=== PATIENT | female | born 1980 | race Caucasian/White ===

== ENCOUNTER 2016-12-07 10:42 | Emergency (ER) | payer OTHER ==
[~2016-12-07] VITALS: Ht 162.6 cm; Wt 100.0 kg
[~2016-12-07 10:42] MED LIST: AMO500 PO; HYDR-3498 PO; IBUP-1542 PO; IBUP800T25 PO; IRON18TA PO; NITR-58 PO; OMEP20CA9 PO; PREN1TAB49 PO; TRAM50TA2 PO
[2016-12-07 10:46] VITALS: Ht 162.6 cm; Wt 100.0 kg
[2016-12-07] MEDS ORDERED: PEN500 PO (12:05)
[2016-12-07] MEDS ORDERED: HYDR-906 PO (12:05)
--- NOTE | 2016-12-07 13:28 | ERD ---
ER Documentation Chief Complaint Date/Time DATE: 12/07/16 TIME: 13:23 Chief Complaint has broken tooth, has pain HPI 36-year-old female patient with a past medical history of chronic toothache presents to the ED complaining of right maxillary second tooth pain that has been going on for the past year. Reports that she followed up with her dentist and is trying to see a oral maxillary surgeon because her tooth is crooked and needs a specialist to perform the procedure. Reports that she tried going to her dentist however they told her to come here to the ED. Reports that this is the same pain. States that taking Rochester helps with her pain. Denies any fever , chills, dysphagia, odynophagia, weakness, nausea, vomiting. ROS All systems reviewed and are negative except as per history of present illness. Medications Home Meds Active Scripts Hydrocodone/Acetaminophen (Rochester 5-325 Tablet) 1 Each Tablet, 1 TAB PO Q6H Y for PAIN, #7 TAB Prov:RADHA PRIDE PA-C 12/07/16 Penicillin V Potassium* (Penicillin V K*) 500 Mg Tab, 500 MG PO QID for 7 Days, TAB Prov:RADHA PRIDE PA-C 12/07/16 Amoxicillin* (Amoxicillin*) 500 Mg Cap, 500 MG PO TID for 7 Days, CAP Prov:RADHA PRIDE PA-C 02/21/16 Tramadol HCl (Tramadol HCl) 50 Mg Tablet, 50 MG PO Q4 Y for PAIN, #30 TAB Prov:RADHA PRIDE PA-C 02/21/16 Nitrofurantoin Monohyd Macrocr (Macrobid) 100 Mg Capsr, 100 MG PO BID for 7 Days , CAP Prov:MERT MORENO 02/10/16 Hydrocodone Bit-Acetaminophen* (Rochester*) 5-325 Mg Tab, 1 TAB PO Q6 Y for PAIN, # 20 TAB Prov:MERT MORENO 02/10/16 Ibuprofen* (Motrin*) 600 Mg Tab, 600 MG PO Q6, #30 TAB Prov:MERT MORENO 10/11/15 Hydrocodone Bit-Acetaminophen* (Rochester*) 5-325 Mg Tab, 1 TAB PO Q6 Y for PAIN, # 10 TAB Prov:MERT MORENO 10/11/15 Nitrofurantoin Monohyd Macrocr* (Macrobid*) 100 Mg Capsr, 100 MG PO BID for 7 Days, CAP Prov:MERT MORENO Hugo 10/11/15 Hydrocodone Bit-Acetaminophen* (Rochester*) 5-325 Mg Tab, 1 TAB PO Q6 Y for PAIN, # 20 TAB Prov:BELLE WETZELYesi [employer] 09/07/15 Ibuprofen* (Motrin*) 800 Mg Tab, 800 MG PO Q6, #30 TAB Prov:BELLE WETZEL Silva [employer] 08/26/15 Hydrocodone Bit-Acetaminophen* (Rochester*) 5-325 Mg Tab, 1 TAB PO Q6 Y for PAIN, # 20 TAB Prov:BELLE WETZELYesi [employer] 08/26/15 Reported Medications Omeprazole* (Prilosec*) 20 Mg Capsule.dr, 20 MG PO DAILY 08/12/11 Iron (Iron) 18 Mg Tablet, 18 MG PO 08/12/11 Vits W-Ca,Fe,Fa(<1MG) () 1 Tab Tablet, 1 TAB PO 08/12/11 Allergies Allergies: Coded Allergies: sulfamethoxazole (Verified Allergy, Unknown, 12/07/16) trimethoprim (Verified Allergy, Unknown, 12/07/16) PMhx/Soc History of Surgery: Yes ( ) Anesthesia Reaction: No Hx Neurological Disorder: No Hx Respiratory Disorders: No Hx Cardiac Disorders: No Hx Psychiatric Problems: No Hx Miscellaneous Medical Probl: No Hx Alcohol Use: Yes (occassional) Hx Substance Use: No Hx Tobacco Use: Yes Smoking Status: Current every day smoker Physical Exam Vitals Vital Signs Date Time Temp Pulse Resp B/P Pulse Ox O2 Delivery O2 Flow Rate FiO2 12/07/16 10:46 98.1 99 18 160/87 99 Physical Exam Const: [id number], well-nourished. In no acute distress. Head: Atraumatic, normocephalic Eyes: Normal Conjunctiva without injection. No purulent discharge. PERRL. EOMI ENT: Normal external ear. Ear canal without erythema. Tympanic membrane pearly gimenez without effusion or bulging. Nasal canal clear with normal turbinates. Right 2nd maxillary tooth decay. Moist oropharynx without tonsillar exudates. Non-erythematous pharynx. Uvula midline. No drooling. No trismus. Neck: Full range of motion. No meningismus. No cervical lymphadenopathy. Resp: Clear to auscultation bilaterally. No wheezing, rhonchi, rales, or crackles. No accessory muscle use. No retractions. Cardio: Regular rate and rhythm. No murmurs, rubs or gallops. Abd: Soft, non tender, non distended. Normal bowel sounds. No palpable masses. No rebound tenderness. No guarding. Skin: No petechiae or rashes Back: No midline tenderness. No CVA tenderness. Ext: No cyanosis, or edema. Neur: Awake and alert. Psych: Normal Mood and Affect Procedures/MDM 36-year-old female patient with no significant past medical history presents to the ED complaining of right tooth pain that started intermittently and chronically for the last year. Patient is afebrile and nontoxic appearing. Patient's pain is chronic. I strictly instructed patient that she should follow -up with her dentist and a chronic pain specialist. I stated that we can no longer refill her narcotic prescriptions. A cures report was generated for patient, she takes Klonopin for her anxiety and the last medication that she filled was for Tramadol which did not help her pain as she stated. Low suspicion for deep space infection, Arpit's angina, strep pharyngitis, retropharyngeal abscess, or other emergent conditions. Low suspicion for drug seeking behavior. However strictly instructed her that we will no longer be able to fill her narcotic prescriptions here in the ED. Discharge medications: Rochester, Penicillin VK Follow up with primary care physician in 1-2 days. Instructed patient to return to the ED sooner for any worsening symptoms. Patient's questions were answered. Patient understood and agreed with discharge plan. Patient discharged stable. Departure Diagnosis: Primary Impression: Chronic dental pain Condition: Stable Patient Instructions: Dental Pain [facility] YOU HAVE RECEIVED A MEDICAL SCREENING EXAM AND THE RESULTS INDICATE THAT YOU DO NOT HAVE A CONDITION THAT REQUIRES URGENT TREATMENT IN THE EMERGENCY DEPARTMENT. FURTHER EVALUATION AND TREATMENT OF YOUR CONDITION CAN WAIT UNTIL YOU ARE SEEN IN YOUR DOCTORS OFFICE WITHIN THE NEXT 1-2 DAYS. IT IS YOUR RESPONSIBILITY TO MAKE AN APPOINTMENT FOR FOLOW-UP CARE. IF YOU HAVE A PRIMARY DOCTOR --you should call your primary doctor and schedule an appointment IF YOU DO NOT HAVE A PRIMARY DOCTOR YOU CAN CALL OUR PHYSICIAN REFERRAL HOTLINE AT IF YOU CAN NOT AFFORD TO SEE A PHYSICIAN YOU CAN CHOSE FROM THE FOLLOWING [facility] [address] [place] [facility] [address] [place] [facility] [address] [facility] [address] [facility] [address] [facility]. [facility] [address] [facility]. [facility] YOU HAVE RECEIVED A MEDICAL SCREENING EXAM AND THE RESULTS INDICATE THAT YOU DO NOT HAVE A CONDITION THAT REQUIRES URGENT TREATMENT IN THE EMERGENCY DEPARTMENT. FURTHER EVALUATION AND TREATMENT OF YOUR CONDITION CAN WAIT UNTIL YOU ARE SEEN IN YOUR DOCTORS OFFICE WITHIN THE NEXT 1-2 DAYS. IT IS YOUR RESPONSIBILITY TO MAKE AN APPOINTMENT FOR FOLOW-UP CARE. IF YOU HAVE A PRIMARY DOCTOR --you should call your primary doctor and schedule and appointment IF YOU DO NOT HAVE A PRIMARY DOCTOR YOU CAN CALL OUR PHYSICIAN REFERRAL HOTLINE AT . IF YOU CAN NOT AFFORD TO SEE A PHYSICIAN YOU CAN CHOSE FROM THE FOLLOWING [facility]: [facility] [address] [place] [address] [facility] [address] [place] [address] [facility] [address] [place] [address] [facility] URGENT C[facility]/SPECIALTIES [facility] ([facility] walk in clinic) Additional Instructions: Call your dentist TOMORROW for an appointment during the next 1-2 days.See the doctor sooner or return here if your condition worsens before your appointment time. RADHA PRIDE PA-C December 07, 2016 13:28
== END 2016-12-07 12:15 | disposition home or self-care (01) ==
LOC: FTE 10:42
DX: K08.89 Other specified disorders of teeth and supporting structures (principal); F17.210 Nicotine dependence, cigarettes, uncomplicated